=== PATIENT | male | born 1945 | race Caucasian/White ===

== ENCOUNTER 2017-11-29 13:01 | Day surgery (SDC) | payer MEDICARE ==
[~2017-11-29 13:01] MED LIST: CEFAZOLIN 2 Gram 2 GM/50 ML BAG IVPB ONE
[2017-11-29] MEDS ORDERED: MIDAZOLAM HCL 2MG/2ML VIAL IV ONE (13:02)
[2017-11-29] MEDS ORDERED: LIDOCAINE 2% MDV (20MG/ML) 20ML VIAL IV ONE (13:02)
[2017-11-29] MEDS ORDERED: FENTANYL PF 100MCG/2ML VIAL IV ONE (13:02)
[2017-11-29] MEDS ORDERED: PROPOFOL 10 MG/ML VIAL IV ONE (13:02)
--- NOTE | 2017-11-30 12:31 | Operative Note ---
DATE OF SURGERY: 11/29/2017 PREOPERATIVE DIAGNOSIS: Elevated PSA with urinary urgency and frequency. POSTOPERATIVE DIAGNOSIS: Elevated PSA with urinary urgency, frequency, and urethral stricture. OPERATION: Cystoscopy and transrectal ultrasound-guided prostate biopsies. Surgeon: Baljit Baxter MD Anesthesia: Sedation. Racing Mechanic: None. COMPLICATIONS: There were no intraoperative complications noted. PROCEDURE: Preop informed consent was obtained. Antibiotics were given. Sedation was administered. The patient was brought to the cystoscopy suite, kept in the supine position with the genitalia prepped and draped sterilely. Flexible cystoscopy was performed. The anterior urethra appears unremarkable to the level of the bulbar urethra where a stricture was encountered. I was unable to advance the scope through the stricture. Attempts at passing a guidewire and dilating the stricture were unsuccessful given the lack of equipment here to accomplish this. Therefore, I removed the cystoscope and the patient was then carefully placed in left lateral decubitus position. Prostate ultrasound was performed. I should note that a digital rectal examination was first performed before inserting the ultrasound, and this revealed a small prostate roughly 30 mL with a small nodule at the left base. Prostate images estimated the volume to be 25 mL. Prostate biopsies were then obtained transrectally sampling the base, mid, and apex of the prostate gland both medially and laterally from both the right and left sides yielding a total of 12 biopsy samples taken. After this was done, the ultrasound probe was removed. Direct pressure was placed on the prostate. There was minimal bleeding at the end of the procedure and the patient was awakened and transferred to recovery in stable condition. PLAN: The patient will follow up with the [facility] in 2 weeks to discuss results and also to determine any further interventions for his stricture. CC: Dr. Rashid MEYERS
== END 2017-11-29 15:26 | disposition home or self-care (01) ==
LOC: SUR 13:01
PROVIDERS: ATTEND Urology
DX: C61 Malignant neoplasm of prostate (principal); I10 Essential (primary) hypertension; R41.82 Altered mental status, unspecified; M1A.9XX0 Chronic gout, unspecified, without tophus (tophi)
CPT/HCPCS: 00902; 55700; 76942; C1769; J3010; J0690